=== PATIENT | male | born 1995 | race Caucasian/White ===

== ENCOUNTER 2018-11-02 18:18 | Emergency (ER) | payer SELFPAY ==
[2018-11-02 18:24] VITALS: BP 131/66; PULSE 103; TEMP 100; BMI 28.9
--- NOTE | 2018-11-02 18:26 | PDOC ---
Rapid Medical Evaluation Time Seen by Provider: 11/02/18 18:21 Medical Evaluation: 11/02/18 18:21 I performed a brief in-person evaluation of this patient. Chief complaint: Left-sided throat pain, fever x 7 days Pertinent physical exam findings: T 100.0 (took ibuprofen prior to arrival), kissing tonsils, muffled voice, difficulty swallowing secretions I have ordered the following: Rapid strep, CBC, CMP Patient will proceed to the ED for further evaluation. Discharge Disposition - Diagnosis Tonsillitis - Referrals - Patient Instructions - Post Discharge Activity
[2018-11-02] MEDS ORDERED: DEXAMETHASONE SOD PHOSPHATE 10 MG/1 ML VIAL IVPUSH ONE (18:41)
[2018-11-02 18:59] LABS: BASO % 0.2 % (0-2.0); EOS % 0.7 % (0-4.5); HEMATOCRIT 44.6 % (35.4-49); HEMOGLOBIN 15.5 GM/dL (11.7-16.9); LYMPH % 14.1 % (8-40); MCH 31.2 pg (25.7-33.7); MCHC 34.6 g/dl (32.0-35.9); MEAN CELL VOLUME 90.2 fl (80-96); MEAN PLT VOLUME 10.6 fl (7.5-11.1); MONO % 10.6 % (3.8-10.2); NEUT % 74.4 % (42.8-82.8); PLATELET COUNT 223 K/MM3 (134-434); RBC 4.95 M/mm3 (4.00-5.60); RDW 12.8 % (11.9-15.9); WHITE BLOOD COUNT 11.5 K/mm3 (4.0-10.0)
--- NOTE | 2018-11-02 19:33 | PDOC ---
History of Present Illness - General Chief Complaint: Sore Throat Stated Complaint: PAIN Time Seen by Provider: 11/02/18 18:21 - History of Present Illness Initial Comments: 11/02/18 19:32 Mr. Weaver is a 23 yo male w/ no significant pmh who presents for evaluation of sore throat. Patient reports this has been going on for the past week and that he has taken only ibuprofen for the pain. Patient localizes pain to the left side of his throat and elected to come in today as his voice has changed and he is having difficulty swallowing his secretions. He currently feels warm. The patient denies chest pain, shortness of breath, headache and dizziness. Denies chills, nausea, vomit, diarrhea and constipation. Denies dysuria, frequency, urgency and hematuria. Past History - Past Medical History Allergies/Adverse Reactions: Allergies Allergy/AdvReac Type Severity Reaction Status Date / Time No Known Allergies Allergy Verified 11/02/18 18:24 Home Medications: Ambulatory Orders Clindamycin [Cleocin -] 600 mg PO TID #9 capsule 11/02/18 COPD: No Other medical history: DENIES - Immunization History Immunization Up to Date: Yes - Suicide/Smoking/Psychosocial Hx Smoking History: Current some day smoker Have you smoked in the past 12 months: No Number of Cigarettes Smoked Daily: 3 Information on smoking cessation initiated: No Hx Alcohol Use: Yes (SOCIAL) Drug/Substance Use Hx: No Review of Systems - Review of Systems Comments:: 11/02/18 19:48 GENERAL/CONSTITUTIONAL: Current fever. No chills. No weakness. HEAD, EYES, EARS, NOSE AND THROAT: +Sore throat as described. Difficulty swallowing x1 day. No change in vision. No ear pain or discharge. CARDIOVASCULAR: No chest pain or shortness of breath RESPIRATORY: No cough, wheezing, or hemoptysis. GASTROINTESTINAL: No nausea, vomiting, diarrhea or constipation. GENITOURINARY: No dysuria, frequency, or change in urination. MUSCULOSKELETAL: No joint or muscle swelling or pain. No neck or back pain. SKIN: No rash NEUROLOGIC: No headache, vertigo, loss of consciousness, or change in strength/ sensation. ENDOCRINE: No increased thirst. No abnormal weight change HEMATOLOGIC/LYMPHATIC: No anemia, easy bleeding, or history of blood clots. ALLERGIC/IMMUNOLOGIC: No hives or skin allergy. 11/02/18 19:48 *Physical Exam - Vital Signs Last Vital Signs Temp Pulse Resp BP Pulse Ox 100.0 F H 103 H 17 131/66 100 11/02/18 18:21 11/02/18 18:21 11/02/18 18:21 11/02/18 18:21 11/02/18 18:21 - Physical Exam Comments: 11/02/18 19:49 GENERAL: Awake, alert, and fully oriented, in no acute distress HEAD: No signs of trauma, normocephalic, atraumatic EYES: PERRLA, EOMI, sclera anicteric, conjunctiva clear ENT: +"Kissing" tonsils noted. 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 Having difficulty handling secretions. Reports voice sounds different. Auricles normal inspection, hearing grossly normal, nares patent. Moist mucosa NECK: Normal ROM, supple, no lymphadenopathy, JVD, or masses LUNGS: No distress, speaks full sentences, clear to auscultation bilaterally HEART: Regular rate and rhythm, normal S1 and S2, no murmurs, rubs or gallops, peripheral pulses normal and equal bilaterally. ABDOMEN: Soft, nontender, normoactive bowel sounds. No guarding, no rebound. No masses EXTREMITIES: Normal inspection, Normal range of motion, no edema. No clubbing or cyanosis. NEUROLOGICAL: Cranial nerves II through XII grossly intact. Normal speech, normal gait, no focal sensorimotor deficits SKIN: Warm, Dry, normal turgor, no rashes or lesions noted. Moderate Sedation - Procedure Monitoring Vital Signs: Procedure Monitoring Vital Signs Temperature 100.0 F H 11/02/18 18:21 Pulse Rate 103 H 11/02/18 18:21 Respiratory Rate 17 11/02/18 18:21 Blood Pressure 131/66 11/02/18 18:21 O2 Sat by Pulse Oximetry (%) 100 11/02/18 18:21 ED Treatment Course - LABORATORY CBC & Chemistry Diagram: 11/02/18 18:30 11/02/18 18:30 - ADDITIONAL ORDERS Additional order review: 11/02/18 18:30 RBC 4.95 MCV 90.2 MCHC 34.6 RDW 12.8 MPV 10.6 Neutrophils % 74.4 Lymphocytes % 14.1 Monocytes % 10.6 H Eosinophils % 0.7 Basophils % 0.2 Medical Decision Making - Medical Decision Making 11/02/18 19:52 Mr. Weaver is a 23 yo male w/ no significant pmh who presents for evaluation of symptoms concerning for strep throat vs. 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 other viral infection. Patient noted to have positive strep as below on previously sent labs. Patient previously given steroids by FLIGHT COMMUNICATIONS OPERATOR. Despite patient trouble tolerating secretions patient appears extremely well so decision made to obtain CT neck for further evaluation. No other interventions needed at this time. 11/02/18 22:29 Patient given toradol and clindamycin for pain relief and antibiosis. Throat anesthetized with cetacaine and 1%lido with epi. PILOT CONTROL OPERATOR HELPER drained with needle aspiration with approximately 1ml purulent material obtained. Discharging with ABX and ENT f/u. Patient will present in morning. *DC/Admit/Observation/Transfer Diagnosis at time of Disposition: Tonsillitis, Abscess - Discharge Dispostion Disposition: HOME - Referrals Referrals: Jesus Foreman MD [Staff Physician] - Rocky Glasgow MD [Staff Physician] - Arnaldo Cárdenas MD [Staff Physician] - - Patient Instructions Printed Discharge Instructions: DI for Strep Throat Additional Instructions: You were evaluated today in the ER and found to have a paratonsillar abscess. We drained the abscess and started you on antibiotics. Please take all antibiotics as written unless directed otherwise by ENT. Follow-up with ENT tomorrow as early as possible for further evaluation. Return to ER if any difficulty breathing, difficulty swallowing, change in voice, or inability to see ENT tomorrow. - Post Discharge Activity
--- NOTE | 2018-11-02 19:42 | PDOC ---
Attending Attestation - HPI HPI: 11/02/18 19:42 The patient is a 23 year old male, with no significant past medical history, who presents to the emergency department with, a week of fever and sore throat. Patient notes his voice became muffled and he began having difficulty swallowing, prompting his arrival to the ED. He denies any recent headache or dizziness. He denies any recent nausea, vomit, diarrhea or constipation. He denies any recent chest pain or shortness of breath. He denies any recent dysuria, frequency, urgency or hematuria. Allergies: NKDA Past surgical history: None reported. <Nelson Gonzales - Last Filed: 11/02/18 19:42> - Resident Resident Name: Skinny Almazan - ED Attending Attestation I have performed the following: I have examined & evaluated the patient, The case was reviewed & discussed with the resident, I agree w/resident's findings & plan, Exceptions are as noted - Physicial Exam PE: 11/02/18 20:24 Agree with general exam as documented by resident. 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 with TANK HOUSE OPERATOR, consider RPA, other deep space infection toradol, steroids, clindamycin dose f/u CT+ neck dispo per clinical course 11/02/18 21:40 CT+ neck consistent with TANK HOUSE OPERATOR, no signs of deeper infection Significant symptomatic improvement after tx Will perform bedside needle aspiration of L TANK HOUSE OPERATOR 11/02/18 22:55 Successful needle aspiration, details documented in resident note DC with rx for clinda and close ENT follow up Patient instructed to seek emergent re-eval if he notes worsening pain, expanding mass, SOB, bleeding, neck stiffness <Joel Jean Baptiste - Last Filed: 11/02/18 22:57> Attestations - Attestations 11/02/18 19:42 Documentation prepared by Nelson Gonzales, acting as medical reviewer for Joel Jean Baptiste MD. <Nelson Gonzales - Last Filed: 11/02/18 19:42>
[2018-11-02 19:44] LABS: ALK PHOS 108 U/L (45-117); ANION GAP 8 MMOL/L (8-16); BILIRUBIN,TOTAL 1.2 mg/dL (0.2-1); BLOOD UREA NITROGEN 15 mg/dL (7-18); CALCIUM 8.1 mg/dL (8.5-10.1); CHLORIDE 103 mmol/L (98-107); CO2 27 mmol/L (21-32); CREATININE 1.1 mg/dL (0.55-1.3); GLUCOSE,RANDOM 97 mg/dL (74-106); POTASSIUM 3.7 mmol/L (3.5-5.1); SGOT/AST 13 U/L (15-37); SGPT/ALT 23 U/L (13-61); SODIUM 138 mmol/L (136-145); TOT PROT 8.2 g/dl (6.4-8.2)
[2018-11-02] MEDS ORDERED: methylPREDNISolone NA SUCC 125 MG/2 ML VIAL IVPUSH ONE (20:13)
[2018-11-02] MEDS ORDERED: methylPREDNISolone NA SUCC 125 MG/2 ML VIAL ONE (20:14)
[2018-11-02] MEDS ORDERED: KETOROLAC TROMETHAMINE 15 MG/ML VIAL IVPUSH ONE (20:21)
[2018-11-02] MEDS ORDERED: CLINDAMYCIN 600MG PREMIX IVPB 600 MG/50 ML BAG IVPB ONE ×2 (20:23→20:46)
[2018-11-02] MEDS ORDERED: KETOROLAC TROMETHAMINE 15 MG/ML VIAL ONE (20:46)
[2018-11-02] MEDS ORDERED: TETRACAINE/BENZOCAINE/BUTAMBEN 20 GM SPR TP ONE (21:29)
[2018-11-02] MEDS ORDERED: LIDOCAINE 2%/EPINEPHRINE 1:100000 (50 ML MD VIAL) INF ONE (21:35)
[2018-11-02] MEDS ORDERED: LIDOCAINE 1%/EPI 1:100000 (20 ML MULTI DOSE VIAL) ONE (21:46)
== END 2018-11-02 23:43 | disposition home or self-care (01) ==
LOC: JERFT 18:18 → JER 18:18
PROC: 0C9PXZZ Drainage of Tonsils, External Approach (ICD-10-PCS; principal; 2018-11-02)
PROC: 3E03329 Introduction of Other Anti-infective into Peripheral Vein, Percutaneous Approach (ICD-10-PCS; 2018-11-02)
PROC: 3E0333Z Introduction of Anti-inflammatory into Peripheral Vein, Percutaneous Approach (ICD-10-PCS; 2018-11-02)
PROC: 3E0333Z Introduction of Anti-inflammatory into Peripheral Vein, Percutaneous Approach (ICD-10-PCS; 2018-11-02)
DX: J36 Peritonsillar abscess (principal); J02.0 Streptococcal pharyngitis; B95.0 Streptococcus, group A, as the cause of diseases classified elsewhere
CPT/HCPCS: 36415; 70491-TC; 80053; 85025; 87880; 99283-25

== ENCOUNTER 2023-04-21 11:44 | Emergency (ER) | payer OTHER ==
[2023-04-21 11:51] VITALS: BMI 35.7
[2023-04-21] MEDS ORDERED: KETOROLAC TROMETHAMINE 30 MG/1 ML VIAL IM ONE (12:29)
[2023-04-21] MEDS ORDERED: DEXAMETHASONE SOD PHOSPHATE 10 MG/1 ML VIAL PO ONE (12:29)
[2023-04-21] MEDS ORDERED: DEXAMETHASONE SOD PHOSPHATE 10 MG/1 ML VIAL ONE (12:30)
[2023-04-21] MEDS ORDERED: KETOROLAC TROMETHAMINE 30 MG/1 ML VIAL ONE (12:30)
[2023-04-21] MEDS ORDERED: KETOROLAC TROMETHAMINE 30 MG/1 ML VIAL IVPUSH ONE (12:35)
[2023-04-21 12:51] LABS: BASO % 0.6 % (0-2.0); EOS % 1.2 % (0-4.5); HEMATOCRIT 43.9 % (35.4-49); HEMOGLOBIN 15.2 GM/dL (11.7-16.9); LYMPH % 14.4 % (8-40); MCH 30.3 pg (25.7-33.7); MCHC 34.7 g/dl (32.0-35.9); MEAN CELL VOLUME 87.4 fl (80-96); MEAN PLT VOLUME 9.9 fl (7.5-11.1); MONO % 8.9 % (3.8-10.2); NEUT % 74.9 % (42.8-82.8); PLATELET COUNT 263 10^3/uL (134-434); RBC 5.02 M/mm3 (4.00-5.60); RDW 13.5 % (11.9-15.9); WHITE BLOOD COUNT 14.5 K/mm3 (4.0-10.0)
[2023-04-21 12:57] LABS: INR 1.23 (0.83-1.09); PROTHROMBIN TIME (PATIENT) 14.2 SEC (9.7-13.0)
[2023-04-21 13:25] LABS: THROAT:GRP A STREP DETECTED (NOTDETECTED)
[2023-04-21 13:33] LABS: CALCIUM 9.1 mg/dL (8.5-10.1)
[2023-04-21 13:34] LABS: BLOOD UREA NITROGEN 13.5 mg/dL (7-18)
[2023-04-21 13:37] LABS: CREATININE 1.1 mg/dL (0.55-1.3)
[2023-04-21 13:39] LABS: BILIRUBIN,TOTAL 1.5 mg/dL (0.2-1); TOT PROT 8.6 g/dl (6.4-8.2)
[2023-04-21] MEDS ORDERED: AMPICILLIN NA/SULBACTAM NA 3 GM in SODIUM CHLORIDE 100 ML IVPB ONE (16:44)
[2023-04-21] MEDS ORDERED: AMPICILLIN NA/SULBACTAM NA 3 GM VIAL ONE (16:49)
[2023-04-21 19:31] VITALS: BP 130/72; PULSE 88; RESP 18; TEMP 98
== END 2023-04-21 19:54 | disposition short-term general hospital (02) ==
LOC: JERFT 11:44
PROC: 3E03329 Introduction of Other Anti-infective into Peripheral Vein, Percutaneous Approach (ICD-10-PCS; principal; 2023-04-21)
PROC: 3E0333Z Introduction of Anti-inflammatory into Peripheral Vein, Percutaneous Approach (ICD-10-PCS; 2023-04-21)
PROC: 3E0233Z Introduction of Anti-inflammatory into Muscle, Percutaneous Approach (ICD-10-PCS; 2023-04-21)
DX: R07.0 Pain in throat (principal); R13.10 Dysphagia, unspecified; R50.9 Fever, unspecified; J36 Peritonsillar abscess; Z20.822 Contact with and (suspected) exposure to COVID-19
CPT/HCPCS: 0241U-QW; 36415; 70491-TC; 80053; 85025; 85610; 85730; 86850; 86900; 86901; 87651; 99285-25; J1100; Q9967

== ENCOUNTER 2023-04-25 13:33 | Emergency (ER) | payer OTHER ==
[2023-04-25 13:42] VITALS: BMI 35.7
[2023-04-25] MEDS ORDERED: SODIUM CHLORIDE 0.9% 500 ML INFUS.BAG IV ONE (14:59)
[2023-04-25] MEDS ORDERED: ACETAMINOPHEN 1000 MG/100 ML BAG IVPB ONE (14:59)
[2023-04-25 15:06] LABS: BASO % 0.2 % (0-2.0); EOS % 0.2 % (0-4.5); HEMATOCRIT 45.8 % (35.4-49); HEMOGLOBIN 15.8 GM/dL (11.7-16.9); LYMPH % 14.8 % (8-40); MCH 30.2 pg (25.7-33.7); MCHC 34.4 g/dl (32.0-35.9); MEAN CELL VOLUME 87.7 fl (80-96); MEAN PLT VOLUME 9.5 fl (7.5-11.1); NEUT % 75.8 % (42.8-82.8); PLATELET COUNT 298 10^3/uL (134-434); RBC 5.22 M/mm3 (4.00-5.60); RDW 13.5 % (11.9-15.9); WHITE BLOOD COUNT 12.9 K/mm3 (4.0-10.0)
[2023-04-25] MEDS ORDERED: ACETAMINOPHEN INJECTION 100 ML IVPB ONE (15:07)
[2023-04-25 15:34] LABS: POTASSIUM 4.1 mmol/L (3.5-5.1)
[2023-04-25 15:36] LABS: ALBUMIN 3.8 g/dl (3.4-5.0); BLOOD UREA NITROGEN 16.8 mg/dL (7-18)
[2023-04-25 15:39] LABS: CREATININE 1.1 mg/dL (0.55-1.3)
[2023-04-25 15:41] LABS: BILIRUBIN,TOTAL 0.6 mg/dL (0.2-1); TOT PROT 8.7 g/dl (6.4-8.2)
[2023-04-25 17:10] VITALS: TEMP 99.4
[2023-04-25 17:18] VITALS: BP 105/62; PULSE 96
[2023-04-25 17:19] VITALS: RESP 18
== END 2023-04-25 18:02 | disposition short-term general hospital (02) ==
LOC: JER 13:33
PROC: 3E033NZ Introduction of Analgesics, Hypnotics, Sedatives into Peripheral Vein, Percutaneous Approach (ICD-10-PCS; principal; 2023-04-25)
DX: J36 Peritonsillar abscess (principal); R07.0 Pain in throat; R50.9 Fever, unspecified; Z20.822 Contact with and (suspected) exposure to COVID-19
CPT/HCPCS: 0241U-QW; 36415; 70491-TC; 80053; 83605; 85025; 87040; 99284-25; Q9967

== ENCOUNTER 2024-03-21 12:33 | Emergency (ER) | payer OTHER ==
[2024-03-21 12:58] VITALS: BMI 33.2
[2024-03-21] MEDS ORDERED: KETOROLAC TROMETHAMINE 15 MG/ML VIAL ONE (14:03)
[2024-03-21] MEDS ORDERED: DEXAMETHASONE SOD PHOSPHATE 10 MG/1 ML VIAL ONE (14:03)
[2024-03-21] MEDS: KETOROLAC TROMETHAMINE 15 MG/ML VIAL IVPUSH ONE (14:28)
[2024-03-21] MEDS: DEXAMETHASONE SOD PHOSPHATE 10 MG/1 ML VIAL IVPUSH ONE (14:28)
[2024-03-21] MEDS: SODIUM CHLORIDE 0.9% 500 ML INFUS.BAG IV ONE ×2 (14:28→18:36)
[2024-03-21] MEDS: CLINDAMYCIN 600MG PREMIX IVPB 600 MG/50 ML BAG IVPB ONE (14:31)
[2024-03-21] MEDS ORDERED: CLINDAMYCIN 600MG PREMIX IVPB 600 MG/50 ML BAG IVPB ONE (14:31)
[2024-03-21] MEDS: DEXAMETHASONE LIQUID 0.5 MG/5 ML PO ONE (14:32)
[2024-03-21 14:52] LABS: BASO % 0.2 % (0-2.0); EOS % 0.7 % (0-4.5); HEMATOCRIT 43.5 % (35.4-49); HEMOGLOBIN 15.1 GM/dL (11.7-16.9); LYMPH % 21.4 % (8-40); MCH 30.4 pg (25.7-33.7); MCHC 34.7 g/dl (32.0-35.9); MEAN CELL VOLUME 87.6 fl (80-96); MEAN PLT VOLUME 10.5 fl (7.5-11.1); MONO % 8.1 % (3.8-10.2); NEUT % 69.6 % (42.8-82.8); PLATELET COUNT 253 10^3/uL (134-434); RBC 4.96 M/mm3 (4.00-5.60); RDW 13.2 % (11.9-15.9)
[2024-03-21 15:15] LABS: POTASSIUM 3.8 mmol/L (3.5-5.1)
[2024-03-21 15:17] LABS: CALCIUM 8.7 mg/dL (8.5-10.1)
[2024-03-21 15:18] LABS: ALBUMIN 3.7 g/dl (3.4-5.0); BLOOD UREA NITROGEN 15.4 mg/dL (7-18)
[2024-03-21 15:23] LABS: BILIRUBIN,TOTAL 1.3 mg/dL (0.2-1); TOT PROT 7.3 g/dl (6.4-8.2)
[2024-03-21 16:10] LABS: HIV INTERPRETATION NEGATIVE (NEGATIVE)
[2024-03-21] MEDS ORDERED: CEFTRIAXONE 1 GM/50 ML BAG ONE (16:25)
[2024-03-21] MEDS ORDERED: cefTRIAXone SODIUM 1 GM VIAL ONE (16:26)
[2024-03-21 19:27] LABS: SYPHILIS W/ RPR CONF NON-REACTIVE (NONREACTIVE)
[2024-03-22] MEDS: CLINDAMYCIN 600MG PREMIX IVPB 600 MG/50 ML BAG IVPB ONE (02:30)
[2024-03-22 02:33] VITALS: PULSE 64; RESP 16; TEMP 98.9
[2024-03-22 02:34] VITALS: BP 99/58
== END 2024-03-22 02:33 | disposition short-term general hospital (02) ==
LOC: JER 12:33
PROC: 3E03329 Introduction of Other Anti-infective into Peripheral Vein, Percutaneous Approach (ICD-10-PCS; principal; 2024-03-21)
PROC: 3E03329 Introduction of Other Anti-infective into Peripheral Vein, Percutaneous Approach (ICD-10-PCS; 2024-03-21)
PROC: 3E0333Z Introduction of Anti-inflammatory into Peripheral Vein, Percutaneous Approach (ICD-10-PCS; 2024-03-21)
PROC: 3E033GC Introduction of Other Therapeutic Substance into Peripheral Vein, Percutaneous Approach (ICD-10-PCS; 2024-03-21)
DX: J36 Peritonsillar abscess (principal); R59.0 Localized enlarged lymph nodes; R49.0 Dysphonia; Z20.822 Contact with and (suspected) exposure to COVID-19
CPT/HCPCS: 36415; 70491-TC; 80053; 85025; 86780; 86803; 87070; 87389; 87491; 87591; 87635; 87651; 99285-25; J1100

== ENCOUNTER 2025-05-13 07:50 | Emergency (ER) | payer OTHER ==
[2025-05-13 07:59] VITALS: BP 129/86; PULSE 75; RESP 18; TEMP 98.1; BMI 36.1
[2025-05-13] MEDS ORDERED: IBUPROFEN 600 MG TABLET (FP) PO ONE (08:54)
[2025-05-13] MEDS: IBUPROFEN 600 MG TABLET (FP) PO ONE (08:55)
[2025-05-13 10:12] LABS: HCV DIAGNOSTIC IN-HOUSE W/RFLX NON-REACTIVE (NONREACTIVE); HIV INTERPRETATION NEGATIVE (NEGATIVE)
[2025-05-13] MEDS: AMOX TR/POT CLAV 875MG/125MG TABLETS (FP) PO ONE (10:12)
== END 2025-05-13 09:51 | disposition home or self-care (01) ==
LOC: JERFT 07:50
DX: J02.0 Streptococcal pharyngitis (principal); R50.9 Fever, unspecified
CPT/HCPCS: 36415; 86780; 86803; 87389; 87491; 87591; 87651; 87661; 99283-25